=== PATIENT | male | born 1985 | race Caucasian/White ===

== ENCOUNTER 2023-03-13 15:38 | Emergency (ER) | payer OTHER ==
[~2023-03-13] VITALS: Ht 172.7 cm; Wt 92.3 kg
--- NOTE | 2023-03-13 15:46 | NUR ---
HERMIN[employer] 89 ACCOMPANIED BY POLICE FOR C/O RIGHT THUMB PAIN 03/05. NO APPARENT DEFORMITY NOTED. WILL CONTINUE TO MONITOR THE PATIENT.
[2023-03-13] MEDS ORDERED: ACETAMINOPHEN 325 MG TABLET PO ONE (16:00)
[2023-03-13] MEDS ORDERED: ACETAMINOPHEN ES 500 MG TABLET ONE (16:35)
[2023-03-13] MEDS ORDERED: TYL2T PO (16:49)
--- NOTE | 2023-03-13 16:52 | NUR ---
Patient discharged to home in stable condition. Written and verbal after care instructions given. Patient verbalizes understanding of instruction.
[2023-03-13 16:53] VITALS: BP 132/80
== END 2023-03-13 16:53 ==
LOC: ER 15:40
DX: S69.81XA Other specified injuries of right wrist, hand and finger(s), initial encounter (principal); X58.XXXA Exposure to other specified factors, initial encounter; Y93.89 Activity, other specified; Y92.89 Other specified places as the place of occurrence of the external cause; Y99.8 Other external cause status
CPT/HCPCS: 73130-TC